=== PATIENT | male | born 1950 | race Caucasian/White ===

== ENCOUNTER 2021-06-02 19:38 | Inpatient (IN) | payer MEDICARE, OTHER ==
[~2021-06-02] VITALS: Ht 162.6 cm; Wt 52.2 kg
--- NOTE | 2021-06-02 19:50 | NUR ---
PT BIBPA FROM SNF C/O AGGRESSIVE BEHAVIOR WITH STAFF, GIVEN ATIVAN PO PUMPER GAUGER. PATIENT IS A/O X 1-2, RR EVEN AND UNLABORED, NO SOB NOTED. PT VSS. PATIENT TAKEN TO ER BED 11. PATIENT IN HOSPITAL GOWN. SITTER AT BEDSIDE. WILL CONTINUE TO MONITOR.
--- NOTE | 2021-06-02 19:55 | NUR ---
BLOOD WORK COLLECTED AND SENT TO LAB
--- NOTE | 2021-06-02 20:01 | NUR ---
COVID SWAB COLLECTED AND SENT TO LAB
--- NOTE | 2021-06-02 20:01 | NUR ---
URINE COLLECTED AND SENT TO LAB
[2021-06-02] MEDS ORDERED: GUAI100S9 PO (20:09)
[2021-06-02] MEDS ORDERED: QUET50TA PO (20:09)
[2021-06-02] MEDS ORDERED: LORA2VIA6 IJ (20:09)
[2021-06-02] MEDS ORDERED: ATOR10TA PO (20:09)
[2021-06-02] MEDS ORDERED: RIVA1.5C13 PO (20:09)
[2021-06-02] MEDS ORDERED: FAMO20TA8 PO (20:09)
[2021-06-02] MEDS ORDERED: PROP10TA10 PO (20:09)
[2021-06-02] MEDS ORDERED: DIVA500T2 PO (20:09)
[2021-06-02] MEDS ORDERED: ACET325T53 PO (20:09)
[2021-06-02] MEDS ORDERED: CHOL100062 PO (20:09)
[2021-06-02] MEDS ORDERED: FERR325T28 PO (20:09)
[2021-06-02] MEDS ORDERED: MULT-447 PO (20:09)
[2021-06-02 20:14] LABS: BASOPHILS # (AUTO) 0.1 K/uL (0.0-0.2); BASOPHILS % (AUTO) 0.8 % (0.0-2.0); EOSINOPHILS % (AUTO) 2.1 % (0.0-6.0); HEMATOCRIT 42 % (39-51); HEMOGLOBIN 13.9 g/dL (13.5-17.5); LYMPHOCYTES # (AUTO) 1.5 K/uL (0.8-4.8); LYMPHOCYTES % (AUTO) 24.3 % (20.0-44.0); MEAN CORPUSCULAR HGB CONC 33 g/dl (31.0-36.0); MEAN CORPUSCULAR VOLUME 89 fL (80-96); MONOCYTES # (AUTO) 0.5 K/uL (0.1-1.30); MONOCYTES % (AUTO) 8.5 % (2.0-12.0); NEUTROPHILS # (AUTO) 3.9 K/uL (1.8-8.9); NEUTROPHILS % (AUTO) 64.3 % (43.0-81.0); PLATELET COUNT (AUTO) 241 K/uL (150-450); RED BLOOD CELL COUNT(AUTO) 4.71 MIL/uL (4.5-6.0)
[2021-06-02 20:19] LABS: ALANINE AMINOTRANSFERASE 25 U/L (12-78); ALBUMIN 3.2 g/dL (3.4-5.0); ALCOHOL, BLOOD < 3 mg/dL (0-0); ALKALINE PHOSPHATASE 83 U/L (46-116); ASPARTATE AMINOTRANSFERASE 27 U/L (15-37); BILIRUBIN,DIRECT 0.1 mg/dL (0.0-0.2); BILIRUBIN,TOTAL 0.2 mg/dL (0.2-1.0); CALCIUM, SERUM 8.8 mg/dL (8.5-10.1); CARBON DIOXIDE 31 mmol/L (21-32); CHLORIDE 105 mmol/L (98-107); CREATININE 1.1 mg/dL (0.6-1.3); GLUCOSE 99 mg/dL (74-106); POTASSIUM 4.5 mmol/L (3.5-5.1); SODIUM SERUM 139 mmol/L (136-145); TOTAL PROTEIN, SERUM 6.9 g/dL (6.4-8.2); UREA NITROGEN, BLOOD 35 mg/dL (7-18)
[2021-06-02 20:24] LABS: BILIRUBIN,URINE NEGATIVE (NEGATIVE); COLOR,URINE YELLOW (YELLOW); LEUKOCYTE ESTERASE ,URINE NEGATIVE (NEGATIVE); NITRITE, URINE NEGATIVE (NEGATIVE); PROTEIN,URINE NEGATIVE (NEGATIVE); UGLUCOSE NEGATIVE (NEGATIVE); UROBILINOGEN,URINE 0.2 EU/dL (0.2)
[2021-06-02 20:31] LABS: ACETAMINOPHEN 0 ug/ml (10-30)
--- NOTE | 2021-06-02 21:05 | NUR ---
PAGED SUPPLY CHAIN ASSISTANT FOR PT EVALUATION
[2021-06-02] MEDS ORDERED: OLANZAPINE 10 MG VIAL IM ONE ×2 (22:10→22:30)
[2021-06-02] MEDS ORDERED: LORAZEPAM INJ 2 MG/ML VIAL IM ONE (22:30)
--- NOTE | 2021-06-02 23:14 | NUR ---
REPORT GIVEN TO STUART SOTOMAYOR
[2021-06-02] MEDS ORDERED: LORAZEPAM INJ 2 MG/ML VIAL ONE (23:15)
--- NOTE | 2021-06-02 23:24 | NUR ---
PT TO GPS VIA CLIFF
--- NOTE | 2021-06-02 23:30 | NUR ---
GPS MANAGER WEALTH MANAGEMENT NOTES: ADMITTED A 70-Y/O, MALE, FROM [facility]- INITIALLY PT CAME FROM [facility]. PT IS ON A 72-HR HOLD FOR GD. PER HOLD, PATIENT WAS CONFUSED, WAS YELLING AND SCREAMING, HE WAS HITTING THE BED AND ATTEMPTING TO LEAVE THE BED. PATIENT DID NOT RESPOND OR REPLY TO ANY QUESTIONS ASK BY CLINICIAN. HE MOVE HIS HEAD FROM SIDE TO SIDE SAYING SOMETHING THAT DID NOT ANSWER THE QUESTIONS. UPON FACE TO FACE ASSESSMENT, PT IS CONFUSED, UNCOOPERATIVE, RESISTIVE TO CARE, AGGRESSIVE AND AFFECT IS FLAT. PT REFUSED TO SIGN ALL ADMISSION PAPERWORK. SKIN ASSESSMENT DONE. BELONGINGS WERE INVENTORIED AND CHECKED FOR CONTRABAND. PT RIGHTS WERE DISCUSSED, BOOKLET WAS GIVEN AND A GUIDE TO PRESCRIPTION MEDICATIONS PROVIDED. OFFERED PNEUMONIA VACCINE BUT PT REFUSED. REFUSED VITAL SIGNS FOR INITIAL ASSESSMENT. PATIENT IS UNDER THE PSYCHIATRIC CARE OF DR. SIDDIQUI AND MEDICAL CARE OF DR. MIRANDA. BED IN LOW LOCKED POSITION. SAFETY PRECAUTIONS MAINTAINED. WILL CONTINUE TO MONITOR Q15 MINS FOR MOOD, SAFETY AND BEHAVIOR.
[2021-06-03] MEDS ORDERED: MAG HYDROX/AL HYDROX/SIMETH 30 ML UDC PO PRN (00:30)
[2021-06-03] MEDS ORDERED: BLOOD SUGAR DIAGNOSTIC 1 EACH STRIP IN ONE (00:30)
[2021-06-03] MEDS ORDERED: ACETAMINOPHEN 325 MG TABLET PO PRN (00:30)
[2021-06-03] MEDS ORDERED: MAGNESIUM HYDROXIDE 30 ML UDC PO PRN (00:30)
[2021-06-03] MEDS: ZOLPIDEM TARTRATE 5 MG TABLET PO PRN ×2 (01:04→21:39)
--- NOTE | 2021-06-03 05:00 | NUR ---
GPS RN NOTE: 0500 - PAGED [facility] ON-CALL DR. MIRANDA REGARDING MEDS NEEDS TO BE RECONCILED AND NOTIFIED PT'S CODE STATUS. PATIENT HAS POLST IN THE CHART DO NOT ATTEMPT RESUSCITATION/DNR. AWAITING RESPONSE FROM MD. WILL ENDORSE TO AM SHIFT FOR CONTINUITY OF CARE. 0630 - LEFT VOICE MESSAGE TO ROB ARCADIO ([phone]) PT'S BROTHER TO BE NOTIFIED OF ADMISSION. AWAITING RESPONSE. WILL ENDORSE TO AM SHIFT ACCORDINGLY.
[2021-06-03] MEDS: LORAZEPAM 0.5 MG TABLET PO PRN ×3 (06:56→22:36)
--- NOTE | 2021-06-03 07:29 | NUR ---
GPS RN NOTE: ANXIETY PATIENT IS VERY ANXIOUS AND RESTLESS. PRN ATIVAN 1MG PO GIVEN ORDERED. WILL CONTINUE TO MONITOR FOR PT'S SAFETY.
[2021-06-03 08:00] VITALS: BP 100/64
--- NOTE | 2021-06-03 08:30 | NUR ---
RN-NOTES PATIENT IN THE DAY ROOM UP IN THE CHAIR ,AWAKE,ALERT X1 ,GUARDED,CALM .NO ACUTE DISTRESS NOTED.
--- NOTE | 2021-06-03 09:41 | NUR ---
MAZIN Initial Discharge Plan: Patient currently resides at [facility] located at [address] [place] [id number]; ([phone]). MAZIN contacted Brinda mitchell ([phone]) to confirm if pt can return back. Brinda will notify this administrative underwriter if pt can return back or not. MAZIN will work with the pt and treatment team to help coordinate appropriate discharge.
--- NOTE | 2021-06-03 09:41 | NUR ---
MAZIN Admit Source: Patient placed on a 5150 hold for GD. Patient became agitated and confused at this facility. He was refusing to take medications. Patient currently resides at [facility] located at [address] [place] [address]; ([phone]). MAZIN contacted Brinda mitchell ([phone]) to confirm if pt can return back. Brinda will notify this creative services writer if pt can return back or not. No supportive contact at this time.
--- NOTE | 2021-06-03 10:30 | NUR ---
RN-NOTES DR. ADAM SEEN THE PATIENT IN THE UNIT AND ALSO REVIEWED PT. POLST WITH VERBAL ORDER OF DNR/DNI. NOTED AND CARRIED OUT.
[2021-06-03] MEDS: FAMOTIDINE (20 MG) 20 MG TABLET PO SCH (11:02)
[2021-06-03] MEDS ORDERED: DIVALPROEX SODIUM 500 MG TABLET.DR PO SCH (13:00)
--- NOTE | 2021-06-03 13:10 | NUR ---
RN-NOTES RECEIVED TO ORDER FROM DR. SIDDIQUI TO CHANGE DEPAKOTE DR 500MG P.O TID TO DEPAKOTE SPRINKLE 500MG P.O TID. NOTED AND CARRIED OUT.
[2021-06-03] MEDS: DIVALPROEX SODIUM 125 MG CAP.SPRINK PO SCH ×2 (13:30→16:46)
--- NOTE | 2021-06-03 13:46 | NUR ---
RN-NOTES NOTED PATIENT SCREAMING AND YELLING WITH AGGRESSIVE BEHAVIOR HITTING AZIZA CHAIR TABLE AND STAFF WITH BOTH HANDS .UN ABLE TO REDIRECT. ALSO REFUSED DEPAKOTE 500MG P.O. DR. SIDDIQUI MADE AWARE WITH T.O ORDER OF ZYPREXA 10MG IM ONCE. NOTED AND CARRIED OUT.
[2021-06-03] MEDS ORDERED: OLANZAPINE 10 MG VIAL IM ONE (14:00)
--- NOTE | 2021-06-03 15:11 | NUR ---
RN-NOTES PATIENT 'S BROTHER ROB ERVIN ) MADE AWARE OF PATIENT HAVING IM SHOT .
--- NOTE | 2021-06-03 15:29 | NUR ---
MAZIN Family Contact: SW contacted patient's brother Oscar ([phone]) to gather collateral and discuss treatment plan. Brother shared that he lives in [place] and is not local. He shared pt has a son that lives in [place] but has not been in contact with son for years. Brother expressed that he is the DPOA and will send the documents to this radio news writer. 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 He shared pt can be violent.
[2021-06-03 16:00] VITALS: BP 136/77
[2021-06-03] MEDS: PROPRANOLOL HCL 10 MG TABLET PO SCH (16:46)
[2021-06-03] MEDS: QUETIAPINE FUMARATE 25 MG TABLET PO SCH (16:47)
[2021-06-03] MEDS: ACETAMINOPHEN 325 MG TABLET PO PRN (18:11)
--- NOTE | 2021-06-03 18:18 | NUR ---
RN-NOTES PATIENT C/O HEADACHE, TYLENOL 650MG P.O GIVEN PRN ORDER. WILL ENDORSE TO INCOMING SHIFT TO CONT. MONITORING FOR SAFETY AND BEHAVIOR AND CONTINUITY OF CARE.
[2021-06-03 20:00] VITALS: BP 102/68
[2021-06-03 21:32] VITALS: BP 102/68
[2021-06-03] MEDS: ATORVASTATIN 10 MG TABLET PO SCH (21:35)
--- NOTE | 2021-06-03 22:40 | NUR ---
RN notes Pt is feeling anxious, screaming and yelling. Administered ativan 1 mg/po/prn as ordered. VS is stable. Charge nurse is aware and informed. Will continue to monitor.
[2021-06-04] MEDS: LORAZEPAM 0.5 MG TABLET PO PRN (06:14)
[2021-06-04 07:58] LABS: ALBUMIN 3.6 g/dL (3.4-5.0); BILIRUBIN,TOTAL 0.8 mg/dL (0.2-1.0); CALCIUM, SERUM 9.4 mg/dL (8.5-10.1); CREATININE 1.7 mg/dL (0.6-1.3); POTASSIUM 4.9 mmol/L (3.5-5.1)
[2021-06-04 08:00] VITALS: BP 117/75
--- NOTE | 2021-06-04 08:35 | NUR ---
DPOA: MAZIN received DPOA documents from patient's brother Oscar ([phone]) who is the DPOA. SW placed in chart.
[2021-06-04] MEDS ORDERED: Medication Not On Formulary EA (Multivitamin With Minerals (One Daily Complete) 1 EACH) PO SCH (09:00)
[2021-06-04] MEDS ORDERED: Medication Not On Formulary EA (Cholecalciferol (Vitamin D3) (Vitamin D3) 1 TAB) PO SCH (09:00)
[2021-06-04 09:08] LABS: THYROID STIMULATING HORMONE 2.23 uIU/mL (0.358-3.74)
[2021-06-04] MEDS: DIVALPROEX SODIUM 125 MG CAP.SPRINK PO SCH ×3 (09:57→17:45)
[2021-06-04] MEDS: QUETIAPINE FUMARATE 25 MG TABLET PO SCH ×3 (09:57→21:56)
[2021-06-04] MEDS: FERROUS SULFATE (325 MG) 325 MG/TAB TABLET PO SCH (09:58)
[2021-06-04] MEDS: MULTIVITAMINS,THERAGRAN 1 UDTAB TABLET PO SCH (09:58)
[2021-06-04] MEDS: CHOLECALCIFEROL 1,000 UNIT TABLET (VIT D3) PO SCH (09:58)
[2021-06-04] MEDS: FAMOTIDINE (20 MG) 20 MG TABLET PO SCH (09:59)
[2021-06-04] MEDS: PROPRANOLOL HCL 10 MG TABLET PO SCH ×2 (09:59→17:00)
[2021-06-04 16:00] VITALS: BP 109/69
--- NOTE | 2021-06-04 19:00 | NUR ---
RN opening notes Received Pt from morning nurse. Pt is resting in bed comfortably. Pt is alert and orientedX1, anxious,confused, disorganized, and not following direction. On room air. No SOB. No S/S of distress noted. Pt denies SI/HI at this time. Reality orientation is provided. Safety precautions is maintained all the time. Will continue to monitor for behavior and safety and continue to monitor Q 15 mins checks per hospital protocol.
--- NOTE | 2021-06-04 19:05 | NUR ---
RN-NOTES PATIENT SLEEPING IN BED EASILY AROUSED, A/OX1. NO ACUTE DISTRESS NOTED. PATIENT REMAINS CONFUSED, DISORGANIZED, LABILE,AGITATED,AND AGGRESSIVE TOWARDS STAFF DURING CARE ALSO REFUSED TO REPOSITIONED BY STAFF PREFERS TO LEAN AND STAY ON HIS LEFT SIDE.SAFETY PRECAUTIONS IN PLACE. NEEDS MAXIMUM ASSIST WITH ADL'S. ALL NEEDS ATTENDED AND ANTICIPATED.WILL CONTINUE TO MONITOR FOR SAFETY AND BEHAVIOR.WILL ENDORSE TO INCOMING SHIFT.
--- NOTE | 2021-06-04 21:00 | NUR ---
RN notes Pt refused VS. Pt agitated easily. Explained risks and benefits. Pt keep refusing.
[2021-06-04] MEDS: ATORVASTATIN 10 MG TABLET PO SCH (21:56)
--- NOTE | 2021-06-04 21:57 | NUR ---
RN notes Pt refused pm meds (lipitor and seroquel) despite risks and benefits. returned meds to [facility]. charge nurse is aware and informed.
[2021-06-05 08:00] VITALS: BP 132/61
[2021-06-05] MEDS: FERROUS SULFATE (325 MG) 325 MG/TAB TABLET PO SCH (08:02)
[2021-06-05] MEDS: DIVALPROEX SODIUM 125 MG CAP.SPRINK PO SCH ×3 (08:02→16:31)
[2021-06-05] MEDS: FAMOTIDINE (20 MG) 20 MG TABLET PO SCH (08:02)
[2021-06-05] MEDS: CHOLECALCIFEROL 1,000 UNIT TABLET (VIT D3) PO SCH (08:02)
[2021-06-05] MEDS: QUETIAPINE FUMARATE 25 MG TABLET PO SCH ×3 (08:03→21:26)
[2021-06-05] MEDS: PROPRANOLOL HCL 10 MG TABLET PO SCH ×2 (08:06→16:31)
[2021-06-05] MEDS: MULTIVITAMINS,THERAGRAN 1 UDTAB TABLET PO SCH (08:06)
--- NOTE | 2021-06-05 14:15 | NUR ---
RN-NOTES PATIENT REMAINS CONFUSED, DISORGANIZED, LABILE, NOTED WITH EPISODE OF AGGRESSIVE TOWARDS STAFF DURING CARE.SAFETY PRECAUTIONS IN PLACE. COMPLIANT WITH MEDICATIONS. NEEDS MAXIMUM ASSIST WITH ADL'S. ENCOURAGED TO INCREASED FOOD AND FLUID INTAKE, STAFF ASSISTED PATIENT EACH MEAL. PATIENT ATE 50% TO 75 % . WILL CONT. TO OFFERED FLUID AND SNACKS. ALL NEEDS ATTENDED AND ANTICIPATED.
[2021-06-05 16:00] VITALS: BP 120/78
[2021-06-05] MEDS: Z GUARD REMEDY 4 OZ OINT TP SCH (16:26)
[2021-06-05 20:27] VITALS: BP 136/83
[2021-06-05] MEDS: ATORVASTATIN 10 MG TABLET PO SCH (21:27)
--- NOTE | 2021-06-05 22:22 | NUR ---
RN-NOTES: PATIENT IS RESTING IN ROOM , EASILY AGITATED PARANOID, DISORGNIZED, COOPERATIVE WITH CARE AND COMPLIANT WITH MEDICATIONS. NEEDS MAXIUM ASSIST WITH ADLS , SAFETY PRECAUTIONS IN PLACE , ENCOURAGE TO PO FLUIDS INTAKE ,NO ACUTE DISTRESS NOTED , ENCOURAGED PT. TO VERBALIZED ANY FEELING OR CONCERN , REDIRECTABLE, WILL CONTINUE TO MONITOR Q15 SAFETY AND BEHAVIOR.
[2021-06-06 08:00] VITALS: BP 144/85
[2021-06-06] MEDS: IV NS 0.9% 1,000 ML IV SCH ×3 (08:06→18:25)
[2021-06-06] MEDS: CHOLECALCIFEROL 1,000 UNIT TABLET (VIT D3) PO SCH (09:17)
[2021-06-06] MEDS: QUETIAPINE FUMARATE 25 MG TABLET PO SCH ×3 (09:17→21:09)
[2021-06-06] MEDS: DIVALPROEX SODIUM 125 MG CAP.SPRINK PO SCH ×3 (09:17→17:43)
[2021-06-06] MEDS: FERROUS SULFATE (325 MG) 325 MG/TAB TABLET PO SCH (09:17)
[2021-06-06] MEDS: MULTIVITAMINS,THERAGRAN 1 UDTAB TABLET PO SCH (09:17)
[2021-06-06] MEDS: PROPRANOLOL HCL 10 MG TABLET PO SCH ×2 (09:19→17:42)
[2021-06-06] MEDS: FAMOTIDINE (20 MG) 20 MG TABLET PO SCH (09:19)
[2021-06-06] MEDS: Z GUARD REMEDY 4 OZ OINT TP SCH ×2 (09:20→17:43)
[2021-06-06 09:33] LABS: CALCIUM, SERUM 8.6 mg/dL (8.5-10.1); CREATININE 1.1 mg/dL (0.6-1.3); POTASSIUM 4.1 mmol/L (3.5-5.1)
[2021-06-06 16:00] VITALS: BP 131/88
--- NOTE | 2021-06-06 19:30 | NUR ---
GPS RN NOTES RECEIVED PATIENT IN BED SLEEPING INTERMITTENTLY. A/OX1. AROUSES EASILY. NO ACUTE DISTRESS NOTED. PATIENT REMAINS CONFUSED, DISORGANIZED, LABILE, RESISTIVE TO CARE. ON IV NS 0.9% NS @100ML/HR FOR HYDRATION. IV ACCESS ON RFA GAUGE #22 PATENT AND INTACT. SAFETY PRECAUTIONS IN PLACE. COMPLIANT WITH MEDICATIONS. NEEDS MAXIMUM ASSIST WITH ADL'S. GOOD NALINI CARE RENDERED. WILL CONTINUE TO MONITOR Q15 MIN ROUNDS FOR SAFETY AND BEHAVIOR.
[2021-06-06 20:57] VITALS: BP 141/79
[2021-06-06] MEDS: ATORVASTATIN 10 MG TABLET PO SCH (21:09)
[2021-06-07] MEDS: LORAZEPAM 0.5 MG TABLET PO PRN (03:01)
[2021-06-07] MEDS: IV NS 0.9% 1,000 ML IV SCH (04:51)
[2021-06-07 08:00] VITALS: BP_SYST 126; BP_SYST 145; BP_DIAS 68; BP_DIAS 84
[2021-06-07] MEDS: CHOLECALCIFEROL 1,000 UNIT TABLET (VIT D3) PO SCH (09:00)
[2021-06-07] MEDS: Z GUARD REMEDY 4 OZ OINT TP SCH ×2 (09:00→17:08)
[2021-06-07] MEDS: FERROUS SULFATE (325 MG) 325 MG/TAB TABLET PO SCH (10:07)
[2021-06-07] MEDS: QUETIAPINE FUMARATE 25 MG TABLET PO SCH ×3 (10:07→21:30)
[2021-06-07] MEDS: MULTIVITAMINS,THERAGRAN 1 UDTAB TABLET PO SCH (10:08)
[2021-06-07] MEDS: DIVALPROEX SODIUM 125 MG CAP.SPRINK PO SCH ×3 (10:08→17:08)
[2021-06-07] MEDS: FAMOTIDINE (20 MG) 20 MG TABLET PO SCH (10:09)
[2021-06-07] MEDS: PROPRANOLOL HCL 10 MG TABLET PO SCH ×2 (10:09→17:24)
--- NOTE | 2021-06-07 18:59 | NUR ---
RN NOTES RECEIVED PATIENT IN BED SLEEPING , EASY TO AROUSE. A/OX1. AROUSES EASILY. NO ACUTE DISTRESS NOTED. PATIENT REMAINS CONFUSED, DISORGANIZED, LABILE, RESISTIVE TO CARE. KICKED AND SCREAMED WHEN DOING BRIEF CHANGES, IV SITE AND IV MEDICATION D/C, SITE CLEANSED GAUZE AND TAPE APPLIED NO SIGNIFICANT BLEEDING NOTED, FULL ASSIST TO FEED AND PROVIDE HYDRATION ENCOURAGED FLUIDS AND HELPED TO FEED AND PROVIDE HYDRATION DURING BREAKFAST LUNCH AND DINNER AND OFTEN BETWEEN FOR HYDRATION. SAFETY PRECAUTIONS IN PLACE. COMPLIANT WITH MEDICATIONS. NEEDS MAXIMUM ASSIST WITH ADL'S. KEPT DRY CLEAN AND REPOSITIONED Q 2 HOURS FOR COMFORT,. WILL CONTINUE TO MONITOR Q15 MIN ROUNDS FOR SAFETY AND BEHAVIOR.
[2021-06-07 19:56] VITALS: BP 134/77
[2021-06-07] MEDS: ATORVASTATIN 10 MG TABLET PO SCH (21:30)
[2021-06-08 08:00] VITALS: BP 135/87
[2021-06-08] MEDS: CHOLECALCIFEROL 1,000 UNIT TABLET (VIT D3) PO SCH (08:12)
[2021-06-08] MEDS: FERROUS SULFATE (325 MG) 325 MG/TAB TABLET PO SCH (08:12)
[2021-06-08] MEDS: QUETIAPINE FUMARATE 25 MG TABLET PO SCH ×3 (08:12→21:30)
[2021-06-08] MEDS: MULTIVITAMINS,THERAGRAN 1 UDTAB TABLET PO SCH (08:12)
[2021-06-08] MEDS: DIVALPROEX SODIUM 125 MG CAP.SPRINK PO SCH ×3 (08:13→16:38)
[2021-06-08] MEDS: FAMOTIDINE (20 MG) 20 MG TABLET PO SCH (08:13)
[2021-06-08] MEDS: PROPRANOLOL HCL 10 MG TABLET PO SCH ×2 (08:14→16:39)
[2021-06-08] MEDS: Z GUARD REMEDY 4 OZ OINT TP SCH ×2 (08:57→16:40)
--- NOTE | 2021-06-08 10:06 | NUR ---
RN-CO: PATIENT IS AWAKE, NO S/S OF DISTRESS NOTED. NEEDS MAXIMUM ASSISTANCE IN ADL. NON COOPERATIVE TO CARE JAGUAR. WHEN CLEANING AND CHANGING HIS DIAPER. COMBATIVE TO CARE WELL. GOOD PERICARE RENDERED. SEEN BY ST THIS MORNING. WE WILL CONTINUE TO MONITOR AND KEEP HIM SAFE.
[2021-06-08] MEDS: LORAZEPAM 0.5 MG TABLET PO PRN (12:24)
--- NOTE | 2021-06-08 12:25 | NUR ---
RN-CO: PT WAS GIVEN ATIVAN 1 MG PO RESTLESSNESS.
--- NOTE | 2021-06-08 13:45 | NUR ---
RN-CO: PATIENT IS AWAKE, NO S/S OF DISTRESS NOTED. NEEDS MAXIMUM ASSISTANCE IN ADL. NON COOPERATIVE TO CARE JAGUAR. WHEN CLEANING AND CHANGING HIS DIAPER. COMBATIVE TO CARE WELL. GOOD NALINI CARE RENDERED. SEEN BY SPEECH THERAPY THIS MORNING. WE WILL CONTINUE TO MONITOR AND KEEP HIM SAFE.PATIENT WAS TURNED AND REPOSITIONED Q 2 HOURS. OFFERED FLUIDS EVERY 2-3 HOURS.
[2021-06-08 16:00] VITALS: BP 128/78
[2021-06-08 19:45] VITALS: BP 143/93
[2021-06-08] MEDS: ATORVASTATIN 10 MG TABLET PO SCH (21:30)
--- NOTE | 2021-06-08 21:50 | NUR ---
GPS OPENING NOTE RECEIVED PATIENT AWAKE IN BED, ALERT/ORIENTED X 1. PROVIDED PATIENT WITH SNACK AND FLUIDS WITH HOB ELEVATED FOR ASPIRATION PRECAUTIONS. PATIENT CALM AND QUIET AT THIS TIME. DRESSING ON LEFT LEG CLEAN, DRY AND INTACT. PATIENT IS BED BOUND. SAFETY MEASURES IN PLACE: HOB ELEVATED, SIDE RAILS UP X3, BED LOCKED IN LOWEST POSITION, BED ALARM ON. WILL CONTINUE TO MONITOR PATIENT Q15 MINS FOR SAFETY AND BEHAVIOR
[2021-06-09] MEDS: LORAZEPAM 0.5 MG TABLET PO PRN ×2 (01:14→12:11)
--- NOTE | 2021-06-09 01:30 | NUR ---
GPS RN NOTE PATIENT RESTLESS AND YELLING OUT, AGITATED. PRN ATIVAN 1 MG PO GIVEN ORDERED. WILL CONTINUE TO MONITOR PATIENT
[2021-06-09] MEDS: ACETAMINOPHEN 325 MG TABLET PO PRN (03:49)
--- NOTE | 2021-06-09 03:56 | NUR ---
GPS RN NOTE PATIENT RESTLESS AND YELLING OUT, PROVIDED WITH APPLE SAUCE AND FLUIDS, CHECKED FOR INCONTINENCE. PATIENT CONTINUED TO YELL DESPITE THIS. ASKED PATIENT IF HE WAS IN PAIN AND PATIENT NODDED HEAD YES. TYLENOL 650 MG PO GIVEN ORDERED. WILL CONTINUE TO MONITOR PATIENT
--- NOTE | 2021-06-09 06:38 | NUR ---
GPS RN CLOSING NOTE PATIENT SLEEPING IN BED, ALERT/ORIENTED X 1, SHAKES HEAD FOR YES AND NO QUESTIONS. PATIENT STABLE ON RA, NO S/S OF DISTRESS OR SOB NOTED, BREATHING EVEN AND UNLABORED. PATIENT WAS RESTLESS AND YELLING SEVERAL TIMES THROUGHOUT SHIFT. PATIENT PROVIDED WITH FLUIDS AND SNACKS SEVERAL TIMES DURING SHIFT. MEDICATIONS GIVEN ORDERED, PT MED COMPLIANT, PRN MEDICATION ATIVAN AND TYLENOL GIVEN DURING SHIFT. PT NEEDS MAXIMUM ASSISTANCE WITH ADL'S AND FEEDING, MEDICATIONS CRUSHED AND MIXED WITH APPLE SAUCE. PATIENT SCREAMING AND COMBATIVE DURING HYGIENE/INCONTINENCE CARE AND WHEN REPOSITIONING PATIENT THROUGHOUT SHIFT. SAFETY MEASURES MAINTAINED THROUGHOUT SHIFT WITH Q15 MIN CHECKS FOR SAFETY AND BEHAVIOR. WILL ENDORSE PLAN OF CARE TO ONCOMING SHIFT.
[2021-06-09 08:00] VITALS: BP 140/91
[2021-06-09] MEDS: Z GUARD REMEDY 4 OZ OINT TP SCH ×2 (08:24→16:10)
[2021-06-09] MEDS: DIVALPROEX SODIUM 125 MG CAP.SPRINK PO SCH ×3 (08:54→16:09)
[2021-06-09] MEDS: MULTIVITAMINS,THERAGRAN 1 UDTAB TABLET PO SCH (08:54)
[2021-06-09] MEDS: FAMOTIDINE (20 MG) 20 MG TABLET PO SCH (08:54)
[2021-06-09] MEDS: FERROUS SULFATE (325 MG) 325 MG/TAB TABLET PO SCH (08:54)
[2021-06-09] MEDS: PROPRANOLOL HCL 10 MG TABLET PO SCH ×2 (08:54→16:12)
[2021-06-09] MEDS: CHOLECALCIFEROL 1,000 UNIT TABLET (VIT D3) PO SCH (08:54)
[2021-06-09] MEDS: QUETIAPINE FUMARATE 25 MG TABLET PO SCH ×3 (08:54→21:50)
--- NOTE | 2021-06-09 10:16 | NUR ---
Court Notification: SW contacted patient's brother Oscar LOUIS ([phone]) and notified of 5250 hearing and left a voicemail.
--- NOTE | 2021-06-09 11:17 | NUR ---
RN-CO: PATIENT IS CONFUSED, NO S/S OF DISTRESS NOTED, BED BATH RENDERED BY STAFF. COMBATIVE TO CARE. TOOK HIS MEDICATIONS THIS MORNING. FLUID OFFERED AND ASSTED TO FEEDING. WE WILL CONTINUE TO MONITOR,
--- NOTE | 2021-06-09 11:30 | NUR ---
Court Hearing: Patient's court hearing for 7010 was today and it was upheld for GD.
--- NOTE | 2021-06-09 11:45 | NUR ---
RN-CO: PATIENT IS CONFUSED, NO S/S OF DISTRESS NOTED, BED BATH RENDERED BY STAFF. COMBATIVE TO CARE. TOOK HIS MEDICATIONS THIS MORNING. FLUID OFFERED AND ASSISTED TO FEEDING. WE WILL CONTINUE TO MONITOR,
--- NOTE | 2021-06-09 12:12 | NUR ---
RN-CO: ATIVAN I MG TABLET GIVEN FOR BEING COMBATIVE TO CARE.
[2021-06-09 16:00] VITALS: BP 162/78
--- NOTE | 2021-06-09 16:20 | NUR ---
Individual Counseling: SW met with pt. at bedside. The pt. is confused and not able to engage in meaningful conversation at this time. Pt. has [place]'s disease. SW will continue to monitor patient's ability to participate in therapeutic Milieu.
[2021-06-09 20:00] VITALS: BP 135/89
[2021-06-09] MEDS: ATORVASTATIN 10 MG TABLET PO SCH (21:50)
[2021-06-09] MEDS: ZOLPIDEM TARTRATE 5 MG TABLET PO PRN (21:52)
[2021-06-10 08:00] VITALS: BP 126/87
[2021-06-10] MEDS: DIVALPROEX SODIUM 125 MG CAP.SPRINK PO SCH ×3 (09:07→16:22)
[2021-06-10] MEDS: Z GUARD REMEDY 4 OZ OINT TP SCH ×2 (09:07→16:38)
[2021-06-10] MEDS: PROPRANOLOL HCL 10 MG TABLET PO SCH ×2 (09:08→16:23)
[2021-06-10] MEDS: CHOLECALCIFEROL 1,000 UNIT TABLET (VIT D3) PO SCH (09:08)
[2021-06-10] MEDS: MULTIVITAMINS,THERAGRAN 1 UDTAB TABLET PO SCH (09:08)
[2021-06-10] MEDS: FAMOTIDINE (20 MG) 20 MG TABLET PO SCH (09:08)
[2021-06-10] MEDS: FERROUS SULFATE (325 MG) 325 MG/TAB TABLET PO SCH (09:09)
[2021-06-10] MEDS: QUETIAPINE FUMARATE 25 MG TABLET PO SCH ×3 (09:09→22:13)
[2021-06-10 16:00] VITALS: BP 131/84
[2021-06-10 20:00] VITALS: BP 126/84
--- NOTE | 2021-06-10 21:20 | NUR ---
GPS RN NOTE: REFUSED SKIN ASSESSMENT PATIENT REFUSED SKIN ASSESSMENT TONIGHT X3, GETS AGITATED/ANXIOUS WHEN TOUCHED, YELLS, STRIKES AT STAFF DURING ADL CARE, UNABLE TO ASSESS PATIENT'S SKIN DUE TO UNCOOPERATIVE BEHAVIOR.
[2021-06-10] MEDS: ATORVASTATIN 10 MG TABLET PO SCH (22:13)
[2021-06-11 08:00] VITALS: BP 145/76
--- NOTE | 2021-06-11 08:16 | NUR ---
MAZIN Discharge Note: Patient will be discharged to [facility] located at [address] [place] [id number]; ([phone]) via ambulance. Rose Marie barrett from [facility] accepted pt and is welcoming pt today. SW contacted patient's brother Oscar LOUIS ([phone]) is aware and agreeable of dc. Pt appears to be alert and oriented x1 and is willing to go to the nursing facility. Pt denies visual/auditory hallucinations. Pt denies suicidal or homicidal ideation. Patient will continue to follow-up with (psychiatrist) Dr. Chavez [address] [facility] [address], [place] [address]; ([phone]). (advertising associate) Dr. Keating [address] [facility] [address], [place] [address]; ([phone]). Pt presented with euthymic mood and congruent affect.
[2021-06-11 09:14] VITALS: BP 145/76
[2021-06-11] MEDS: PROPRANOLOL HCL 10 MG TABLET PO SCH (09:14)
[2021-06-11] MEDS: DIVALPROEX SODIUM 125 MG CAP.SPRINK PO SCH ×2 (09:14→12:03)
[2021-06-11] MEDS: FERROUS SULFATE (325 MG) 325 MG/TAB TABLET PO SCH (09:14)
[2021-06-11] MEDS: MULTIVITAMINS,THERAGRAN 1 UDTAB TABLET PO SCH (09:14)
[2021-06-11] MEDS: FAMOTIDINE (20 MG) 20 MG TABLET PO SCH (09:14)
[2021-06-11] MEDS: CHOLECALCIFEROL 1,000 UNIT TABLET (VIT D3) PO SCH (09:15)
[2021-06-11] MEDS: QUETIAPINE FUMARATE 25 MG TABLET PO SCH (09:15)
[2021-06-11] MEDS: Z GUARD REMEDY 4 OZ OINT TP SCH (09:29)
--- NOTE | 2021-06-11 13:33 | NUR ---
RN-DISCHARGE NOTES RECEIVED A DISCHARGE ORDER FROM DR. SIDDIQUI ( PSYCHIATRIST) DR. 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 REPORT WAS GIVEN TO LAMAR ( RN RETAIL DEPARTMENT SUPERVISOR). PATIENT LEFT THE UNIT IN STABLE CONDITION ALERT TO NAME ONLY,DID NOT VERBALIZE SI/HI,DENIES VISUAL/AUDITORY HALLUCINATIONS AT THE TIME OF DISCHARGE. PATIENT LEFT WITH BELONGINGS. TIMEKEEPING SUPERVISOR BY AMBULANCE VIA GURNEY WITH TWO STAFF ASSIST.PER MAZIN PATIENT'S BROTHER (ROB/MISSY) AWARE OF THE DISCHARGE.`
== END 2021-06-11 13:25 | DRG 885 ==
LOC: ER 19:46 → GPS 22:53
PROVIDERS: ADMIT Psychiatry & Neurology Psychiatry; ATTEND Student in an Organized Health Care Education/Training Program
DX: F29 Unspecified psychosis not due to a substance or known physiological condition (principal); N17.9 Acute kidney failure, unspecified; F03.91 Unspecified dementia, unspecified severity, with behavioral disturbance; G10 Huntington's disease; F41.9 Anxiety disorder, unspecified; Z20.822 Contact with and (suspected) exposure to COVID-19; Z79.899 Other long term (current) drug therapy; Z73.6 Limitation of activities due to disability; E78.5 Hyperlipidemia, unspecified; F32.9 Major depressive disorder, single episode, unspecified; S51.812A Laceration without foreign body of left forearm, initial encounter; S51.811A Laceration without foreign body of right forearm, initial encounter; X58.XXXA Exposure to other specified factors, initial encounter; Y92.9 Unspecified place or not applicable
CPT/HCPCS: 36415; 80048-TC; 80053-TC; 80061-TC; 80076-TC; 80164-TC; 82962-TC; 84443-TC; 85025-TC; 87081-TC; 92526; 92611-TC; C9803; G0480; J2060; J3490; J7030